=== PATIENT | female | born 1990 | race Hispanic/Latino ===

== ENCOUNTER 2022-06-01 20:27 | Inpatient (IN) | payer SELFPAY ==
[2022-06-01] MEDS ORDERED: ACETAMINOPHEN 500 MG TAB ONE (21:57)
[2022-06-01 22:10] LABS: Absolute Lymphocytes (CBC) 0.2 K/uL (0.7-4.9); Hematocrit 36.1 % (36.0-45.0); MCV 87.8 fL (80-100); RBC Red Blood Cell Count 4.11 M/uL (3.86-4.86)
[2022-06-01 22:17] LABS: Protime INR 1.16
--- NOTE | 2022-06-01 22:25 | RAD REPORT ---
EXAM DESCRIPTION: RAD - Chest Single View - 06/01/2022 10:19 pm CLINICAL HISTORY: FEVER Chest pain. COMPARISON: CHEST SINGLE VIEW dated 06/08/2012; ABDOMEN ACUTE SERIES dated 09/03/2006 FINDINGS: Portable technique limits examination quality. The lungs are grossly clear. The heart is normal in size. No displaced fractures. IMPRESSION: No acute intrathoracic process suspected.
[2022-06-01 22:35] LABS: Albumin 2.6 g/dL (3.4-5.0); Bilirubin Total 0.3 mg/dL (0.2-1.0); Protein, Total 7.2 g/dL (6.4-8.2)
[2022-06-01 22:46] LABS: Potassium 2.8 mmol/L (3.5-5.1)
[2022-06-01] MEDS ORDERED: ONDANSETRON 4 MG/2 ML VIAL ONE (23:58)
[2022-06-01] MEDS ORDERED: MORPHINE 4 MG/ML SYR ONE (23:58)
[2022-06-02 00:09] LABS: Urine Blood Trace-lysed (Negative); Urine Glucose Trace (Negative); Urine Protein 2+ (Negative); Urine Specific Gravity 1.015 (1.005-1.030)
[2022-06-02] MEDS ORDERED: KCL 20 MEQ/100 mL IVPB 100 ML IV ONE (00:45)
[2022-06-02] MEDS ORDERED: CEFTRIAXONE 1000 MG/VIAL ONE (00:45)
[2022-06-02] MEDS ORDERED: NA CHLORIDE 0.9% 500 ML ONE (00:50)
[2022-06-02 00:53] LABS: Urine Specific Gravity/Preg 1.015 (1.005-1.030)
[2022-06-02 01:04] LABS: Urine Bacteria Loaded /HPF (<20); Urine RBC <5 /HPF (None Seen)
--- NOTE | 2022-06-02 01:59 | EDPHYS ---
Physician Documentation [facility] Name: Christine Casey Age: 31 yrs Sex: Female : 1990 Arrival Date: 06/01/2022 Time: 20:34 Bed 3 Private MD: ED Physician Sameer Jacobson HPI: 06/01 21:50 This 31 yrs old Female presents to ER via EMS with complaints of Fever. cp 21:50 The patient reports fever, with an emergency department temperature of 103.5 degrees cp Fahrenheit. 21:50 body aches, chills, malaise, headache times 1 week. cp 21:50 Associated signs and symptoms: Pertinent negatives: abdominal pain, cough, diarrhea, cp vomiting. 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 - Social history:: Smoking status: unknown. ROS: 06/01 21:55 Constitutional: Positive for body aches, fever, Negative for poor PO intake. cp 21:55 Eyes: Negative for injury, pain, redness, and discharge. cp 21:55 ENT: Positive for sore throat. 21:55 Cardiovascular: Negative for chest pain, edema. 21:55 Respiratory: Negative for cough, shortness of breath, wheezing. 21:55 Abdomen/GI: Negative for abdominal pain, vomiting, diarrhea, constipation. 21:55 Back: Positive for pain at rest, pain with movement, of the mid back area. 21:55 Skin: Negative for cellulitis, rash. 21:55 Neuro: Positive for headache, Negative for altered mental status, dizziness, weakness. 21:55 All other systems are negative. Exam: 21:40 ECG was reviewed by the Attending Physician. cp 22:00 Constitutional: The patient appears in no acute distress, alert, awake, cp non-diaphoretic, non-toxic, well developed, well nourished, uncomfortable. 22:00 Head/Face: Normocephalic, atraumatic. cp 22:00 Eyes: Periorbital structures: appear normal, Pupils: equal, round, and reactive to light and accomodation, Extraocular movements: intact throughout, Conjunctiva: normal, no exudate, no injection, Sclera: no appreciated abnormality, Lids and lashes: appear normal, bilaterally. 22:00 ENT: External ear(s): are unremarkable, Ear canal(s): are normal, clear, TM's: dullness, bilaterally, Nose: is normal, Mouth: Lips: moist, Oral mucosa: pink and intact, moist, Posterior pharynx: Airway: no evidence of obstruction, patent, Tonsils: with erythema, no enlargement, no exudate, swelling, is not appreciated, erythema, that is mild, exudate, is not appreciated. 22:00 Neck: ROM/movement: pain, that is mild, with flexion, limited range of motion, is not appreciated, Meningeal signs: are not present, nuchal rigidity, is not appreciated, Lymph nodes: no appreciated lymphadenopathy. 22:00 Chest/axilla: Inspection: normal. 22:00 Cardiovascular: Rate: tachycardic, Rhythm: regular, Edema: is not appreciated, JVD: is not appreciated. 22:00 Respiratory: the patient does not display signs of respiratory distress, Respirations: normal, no use of accessory muscles, no retractions, labored breathing, is not present, Breath sounds: are clear throughout, no decreased breath sounds, no stridor, no wheezing. 22:00 Abdomen/GI: Inspection: abdomen appears normal, Palpation: abdomen is soft and non-tender, in all quadrants. 22:00 Back: pain, that is moderate, of the mid back area, ROM is painful, with all movement, Straight leg raises: of both lower extremities does not illicit pain. 22:00 Skin: cellulitis, is not appreciated, no rash present. 22:00 Neuro: Orientation: to person, place \\T\\ time. Mentation: is normal, Motor: moves all fours, strength is normal, Sensation: is normal. Vital Signs: 21:12 BP 156 / 95; Pulse 153; Resp 20; Temp 103.5(O); Pulse Ox 96% on R/A; Weight 97.52 kg; hb Height 5 ft. 2 in. (157.48 cm); Pain 9/10; 06/02 00:26 BP 115 / 62; Pulse 104; Resp 21; Temp 99.8(O); Pulse Ox 100% on R/A; kd3 01:30 BP 123 / 72; Pulse 99; Resp 17 S; Pulse Ox 100% on R/A; ha1 05:04 Pulse 109; Resp 19; Pulse Ox 98% on R/A; kd3 05:52 Pulse 102; Resp 20; Pulse Ox 99% on R/A; kd3 06/01 21:12 Body Mass Index 39.32 (97.52 kg, 157.48 cm) hb MDM: 06/01 21:19 Patient medically screened. [facility] 06/02 01:45 ED course: Patient meets severe sepsis criteria: A) source of infection is urine, B) cp SIRS criteria is temp of 103.5 and initial HR of 153, C) organ dysfunction criteria with elevated lactate of 2.8. IV fluids of 1 liter bolus times 2, antibiotic Rocephin given. 01:50 Data reviewed: vital signs, nurses notes, lab test result(s), radiologic studies, CT cp scan. 01:50 Test interpretation: by ED physician or midlevel provider: ECG, plain radiologic cp studies. Counseling: I had a detailed discussion with the patient and/or guardian regarding: the historical points, exam findings, and any diagnostic results supporting the discharge/admit diagnosis, lab results, radiology results, the need for further work-up and treatment in the hospital. Physician consultation: Tommy Brice was contacted at 01:20, regarding admission, patient's condition. 06/01 21:45 Order name: Blood Culture Adult (2) 06/01 21:45 Order name: CBC with Diff; Complete Time: 22:22 06/01 22:33 Interpretation: Normal except: JAMISON% 90.0; LYM% 4.0; LYMA 0.2. 06/01 21:45 Order name: CMP; Complete Time: 23:02 06/01 23:02 Interpretation: Normal except: NA 132; K 2.8; GLUC 206; GFR 66; ALK 181; ALB 2.6; GLOB cp 4.6; A/G 0.6. 06/01 21:45 Order name: Lactate; Complete Time: 22:33 06/01 22:33 Interpretation: Abnormal: LAC 2.8. 06/01 21:45 Order name: Protime (+inr); Complete Time: 22:22 06/01 21:45 Order name: Urine Culture 06/01 21:45 Order name: Urine Microscopic Only; Complete Time: 01:15 06/02 01:34 Interpretation: Normal except: UWBC 10-20; UBACT Loaded. cp 06/01 22:23 Order name: COVID-19 SARS RT PCR (Document "Date of Onset" if Symptomatic); Complete cp Time: 01:15 06/01 22:23 Order name: Influenza Screen (a \\T\\ B); Complete Time: 01:15 cp 06/01 22:23 Order name: Strep; Complete Time: 01:15 cp 06/02 00:09 Order name: Urine Dipstick-Ancillary; Complete Time: 00:10 EDMS 06/02 01:34 Interpretation: Normal except: UBLD Trace-lysed; UPROT 2+; UNIT Positive; UESTR 1+. cp 06/02 00:14 Order name: Glucose, Ancillary Testing; Complete Time: 00:20 EDMS 06/02 00:14 Order name: Urine --Ancillary (enter results); Complete Time: 01:15 wm 06/02 00:47 Order name: Throat Culture EDMS 06/01 21:45 Order name: Chest Single View XRAY; Complete Time: 22:33 cp 06/02 00:14 Order name: CT Abd/Pelvis - IV Contrast Only cp 06/02 02:33 Order name: Lactate Sepsis 2 HR Follow-up; Complete Time: 21:01 EDMS 06/02 06:23 Order name: CBC with Automated Diff; Complete Time: 21:01 EDMS 06/02 06:48 Order name: Comprehensive Metabolic Panel; Complete Time: 21:01 EDMS 06/02 06:48 Order name: Magnesium; Complete Time: 21:01 EDMS 06/02 07:17 Order name: Hemoglobin A1c; Complete Time: 21:01 EDMS 06/02 10:45 Order name: Gram Stain--Anaerobic Bottle EDMS 06/01 21:45 Order name: Accucheck; Complete Time: 00:18 cp 06/01 21:45 Order name: Cardiac monitoring; Complete Time: 23:41 cp 06/01 21:45 Order name: EKG - Nurse/Tech; Complete Time: 21:45 cp 06/01 21:45 Order name: IV Saline Lock - Large Bore; Complete Time: 21:45 cp 06/01 21:45 Order name: Labs collected and sent; Complete Time: 21:56 cp 06/01 21:45 Order name: O2 Per Protocol; Complete Time: 21:56 cp 06/01 21:45 Order name: O2 Sat Monitoring; Complete Time: 21:56 cp 06/01 21:45 Order name: Urine Dipstick-Ancillary (obtain specimen); Complete Time: 00:18 cp 06/01 21:45 Order name: Urine Test (obtain specimen); Complete Time: 00:18 cp EC/01 21:40 Rate is 122 beats/min. Rhythm is regular. TX interval is normal. QRS interval is cp normal. QT interval is normal. Interpreted by me. Reviewed by me. Administered Medications: 21:56 Drug: Acetaminophen 1000 mg Route: PO; kd3 06/02 05:03 Follow up: Response: Temperature is decreased kd3 06/01 23:55 Drug: morphine 4 mg Route: IVP; Infused Over: 4 mins; Site: right antecubital; kd3 06/02 05:03 Follow up: Response: No adverse reaction kd3 06/01 23:55 Drug: Zofran (Ondansetron) 4 mg Route: IVP; Site: right antecubital; kd3 06/02 05:03 Follow up: Response: No adverse reaction kd3 00:50 Drug: Rocephin - (cefTRIAXone) 1 grams Route: IVPB; Infused Over: 30 mins; Site: right 3 antecubital; 03:13 Follow up: IV Status: Completed infusion kd3 00:50 Drug: Potassium Chloride 20 mEq Route: IV; Rate: calculated rate; Site: right 3 antecubital; 03:13 Follow up: IV Status: Completed infusion kd3 05:03 Follow up: Response: No adverse reaction kd3 03:13 Drug: NS 0.9% 1000 ml Route: IV; Rate: 1 bolus; Site: right antecubital; kd3 05:02 Follow up: Rate change 1000 ml; IV Status: Completed infusion kd3 03:13 Drug: Potassium Effervescent Tablet 50 mEq Route: PO; kd3 05:06 Follow up: Response: No adverse reaction kd3 03:14 Drug: Zofran (Ondansetron) 4 mg Route: IVP; Site: right antecubital; kd3 05:02 Follow up: Response: No adverse reaction; Pain is decreased kd3 03:14 Drug: morphine 4 mg Route: IVP; Infused Over: 4 mins; Site: right antecubital; kd3 05:02 Follow up: Response: No adverse reaction; Pain is decreased kd3 05:36 Drug: NS 0.9% 1000 ml Route: IV; Rate: 100 ml/hr; Site: right antecubital; kd3 05:36 Follow up: Rate change 1000 ml; IV Status: Completed infusion kd3 Disposition Summary: 06/02/22 01:58 Hospitalization Ordered Hospitalization Status: Inpatient Admission cp Provider: Rusty Munguia cp Condition: Stable cp Problem: new cp Symptoms: have improved cp Bed/Room Type: Standard cp Location: Intensive Care Unit(06/02/22 13:28) ja1 Room Assignment: 5-(06/02/22 13:39) ja1 Diagnosis - Pyelonephritis acute cp - Sepsis, unspecified organism cp Forms: - Medication Reconciliation Form cp - SBAR form cp Signatures: Dispatcher [employer] EDMS Sameer Jacobson MD MD cha Attema, Lee, OYSTER CULTIVATOR-C OYSTER CULTIVATOR-Cla1 Sameer Hicks PA PA cp Rosalinda Stubbs, RN CATIA Marcus Mcelroy RN RN ja1 Graciela Chacon RN RN kd3 Corrections: (The following items were deleted from the chart) 02:27 01:58 Telemetry/MedSurg (Inpatient) cp cg 02:27 01:58 cp cg 04:11 06/01 21:50 body aches. cp cp 06/02 04:11 06/01 21:50 Onset: The symptoms/episode began/occurred 1 week(s) ago, cp cp 06/02 13:28 02:27 [facility] ER HOLD cg ja1 13:28 02:27 ERHOLD- cg ja1 13:39 13:28 3- ja1 ja1
--- NOTE | 2022-06-02 01:59 | ER ---
Nurse's Notes [facility] Name: Christine Casey Age: 31 yrs Sex: Female : 1990 Arrival Date: 06/01/2022 Time: 20:34 Bed 3 Private MD: Diagnosis: Pyelonephritis acute;Sepsis, unspecified organism Presentation: 06/01 21:12 Chief complaint: Body aches, nausea, headache, chills, subjective fever, and malaise x hb 1 week. Coronavirus screen: Client presents with at least one sign or symptom that may indicate coronavirus-19. Standard/surgical mask placed on the client. Provider contacted for isolation considerations. Ebola Screen: No symptoms or risks identified at this time. Onset of symptoms was May 25, 2022. 21:12 Method Of Arrival: EMS: [facility] hb 21:12 Acuity: MICHELLE 2 hb 06/02 04:08 Initial Sepsis Screen: Does the patient meet any 2 criteria? No. Patient's initial kd3 sepsis screen is negative. Does the patient have a suspected source of infection? No. Patient's initial sepsis screen is negative. Risk Assessment: Do you want to hurt yourself or someone else? Patient reports no desire to harm self or others. Triage Assessment: 04:07 General: Appears uncomfortable, Behavior is calm, cooperative. Pain: Complains of pain kd3 in mid back area. 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 - Social history:: Smoking status: unknown. Screenin:27 Abuse screen: Denies threats or abuse. Denies injuries from another. Nutritional kd3 screening: No deficits noted. Tuberculosis screening: No symptoms or risk factors identified. Fall Risk None identified. Assessment: 06/01 22:30 General: Appears in no apparent distress. Behavior is calm, cooperative. kd3 23:30 Neuro: Level of Consciousness is awake, alert, obeys commands, Oriented to person, kd3 place, time, situation. Respiratory: Airway is patent Trachea midline Respiratory effort is even, unlabored, Respiratory pattern is regular, symmetrical. 23:30 Cardiovascular: Patient's skin is warm and dry. kd3 06/02 00:26 Reassessment: No changes from previously documented assessment. Patient and/or family kd3 updated on plan of care and expected duration. Pain level reassessed. Patient is alert, oriented x 3, equal unlabored respirations, skin warm/dry/pink. General:. 03:25 Reassessment: No changes from previously documented assessment. Patient and/or family kd3 updated on plan of care and expected duration. Pain level reassessed. Patient is alert, oriented x 3, equal unlabored respirations, skin warm/dry/pink. 04:08 General: Appears uncomfortable, Behavior is calm, cooperative. kd3 05:01 Pain: Complains of pain in mid back area. kd3 Vital Signs: 06/01 21:12 BP 156 / 95; Pulse 153; Resp 20; Temp 103.5(O); Pulse Ox 96% on R/A; Weight 97.52 kg; hb Height 5 ft. 2 in. (157.48 cm); Pain /; 06/02 00:26 BP 115 / 62; Pulse 104; Resp 21; Temp 99.8(O); Pulse Ox 100% on R/A; kd3 01:30 BP 123 / 72; Pulse 99; Resp 17 S; Pulse Ox 100% on R/A; ha1 05:04 Pulse 109; Resp 19; Pulse Ox 98% on R/A; kd3 05:52 Pulse 102; Resp 20; Pulse Ox 99% on R/A; kd3 06/01 21:12 Body Mass Index 39.32 (97.52 kg, 157.48 cm) hb ED Course: 06/01 20:34 Patient arrived in ED. ja2 21:14 Triage completed. hb 21:14 Arm band placed on. hb 21:17 Sameer Hicks PA is PHCP. cp 21:17 Sameer Jacobson MD is Attending Physician. cp 21:44 Graciela Chacon RN is Primary Nurse. kd3 22:21 Chest Single View XRAY In Process Unspecified. EDMS 06/02 00:18 COVID-19 SARS RT PCR (Document "Date of Onset" if Symptomatic) Sent. kd3 00:18 Influenza Screen (a \\T\\ B) Sent. kd3 00:18 Strep Sent. kd3 01:22 CT Abd/Pelvis - IV Contrast Only In Process Unspecified. EDMS 01:57 Ezra, Rusty, MD is Hospitalizing Provider. cp 04:08 No provider procedures requiring assistance completed. Inserted saline lock: 20 gauge kd3 in right antecubital area, using aseptic technique. Blood collected. 05:53 Patient admitted, IV remains in place. kd3 05:54 Patient has correct armband on for positive identification. kd3 Administered Medications: 06/01 21:56 Drug: Acetaminophen 1000 mg Route: PO; kd3 06/02 05:03 Follow up: Response: Temperature is decreased kd3 06/01 23:55 Drug: morphine 4 mg Route: IVP; Infused Over: 4 mins; Site: right antecubital; kd3 06/02 05:03 Follow up: Response: No adverse reaction kd3 06/01 23:55 Drug: Zofran (Ondansetron) 4 mg Route: IVP; Site: right antecubital; kd3 06/02 05:03 Follow up: Response: No adverse reaction kd3 00:50 Drug: Rocephin - (cefTRIAXone) 1 grams Route: IVPB; Infused Over: 30 mins; Site: right kd3 antecubital; 03:13 Follow up: IV Status: Completed infusion kd3 00:50 Drug: Potassium Chloride 20 mEq Route: IV; Rate: calculated rate; Site: right kd3 antecubital; 03:13 Follow up: IV Status: Completed infusion kd3 05:03 Follow up: Response: No adverse reaction kd3 03:13 Drug: NS 0.9% 1000 ml Route: IV; Rate: 1 bolus; Site: right antecubital; kd3 05:02 Follow up: Rate change 1000 ml; IV Status: Completed infusion kd3 03:13 Drug: Potassium Effervescent Tablet 50 mEq Route: PO; kd3 05:06 Follow up: Response: No adverse reaction kd3 03:14 Drug: Zofran (Ondansetron) 4 mg Route: IVP; Site: right antecubital; kd3 05:02 Follow up: Response: No adverse reaction; Pain is decreased kd3 03:14 Drug: morphine 4 mg Route: IVP; Infused Over: 4 mins; Site: right antecubital; kd3 05:02 Follow up: Response: No adverse reaction; Pain is decreased kd3 05:36 Drug: NS 0.9% 1000 ml Route: IV; Rate: 100 ml/hr; Site: right antecubital; kd3 05:36 Follow up: Rate change 1000 ml; IV Status: Completed infusion kd3 Medication: 04:08 VIS not applicable for this client. kd3 Outcome: 01:58 Decision to Hospitalize by Provider. cp 04:08 Condition: stable kd3 05:53 Admitted to ER Hold. Please see [facility] for further documentation. kd3 05:53 Discharge instructions given to patient, Instructed on the need for admit, Demonstrated understanding of instructions, follow-up care. 14:21 Patient left the ED. ll1 Signatures: Dispatcher [employer] EDMS Sameer Hicks PA PA cp Malena Ruiz RN RN Lisha Krishnamurthy RN RN ll1 Lucretia Mooney Kyli, RN RN kd3 Mare Lynch RN RN ha1
--- NOTE | 2022-06-02 02:23 | P.HP ---
Certification for Inpatient Patient admitted to: Inpatient With expected LOS: >2 Midnights Patient will require the following post-hospital care: None Practitioner: I am a practitioner with admitting privileges, knowledge of patient current condition, hospital course, and medical plan of care. Services: Services provided to patient in accordance with Admission requirements found in Title 42 Section 412.3 of the Code of Federal Regulations <Tommy Brice Luis Vazquez - Last Filed: 06/02/22 02:17> Patient History Date of Service: 06/02/22 Reason for admission: Sepsis, pyelonephritis History of Present Illness: 31-year-old otherwise healthy female presents emergency department for 4 days of chills, malaise, right-sided back pain. She does report some urinary frequency denies history of UTIs. Upon arrival to the emergency department she met criteria for sepsis with heart rate greater than 90 fever, respiratory rate greater than 20 with suspected source of infectionUTI. Her labs are significant for hypokalemia with potassium 2.8 lactic acidosis 2.8 initially white blood cell count 5.5 urine nitrate positive 1+ leuk esterase loaded bacteria CT with IV contrast shows enlargement of the right kidney with heterogenous enhancement pattern and mild perinephric stranding, wedge-shaped opacity in the superior lobe, mild urothelial thickening findings highly suggestive of right-sided pyelonephritis. Associated early renal abscess cannot be entirely excluded. Patient given antibioticsRocephin repeat lactate currently pending patient meets criteria for severe sepsis. Will admit for further evaluation and management of right-sided pyelonephritis, severe sepsis. - Past Medical/Surgical History Diabetic: No -: none -: Appy -: Arianna Psychosocial/ Personal History: Pt lives at home with family. - Family History Mother -: Diabetes Father -: Heart disease - Social History Smoking Status: Current some day smoker Alcohol use: Yes CD- Drugs: No Place of Residence: Home <Tommy Brice - Last Filed: 06/02/22 02:17> Date of Service: 06/02/22 <Rusty Munguia - Last Filed: 06/02/22 19:31> Allergies No Known Allergies Allergy (Verified 06/02/22 15:01) Home Medications: NK [No Home Meds] 06/02/22 Review of Systems 10-point ROS is otherwise unremarkable General: Fever, Chills, Weakness, Malaise Genitourinary: Frequency <Tommy Brice - Last Filed: 06/02/22 02:17> Physical Examination - Physical Exam General: Alert, In no apparent distress, Oriented x3 HEENT: Atraumatic, PERRLA, Mucous membr. moist/pink, EOMI, Sclerae nonicteric Neck: Supple, 2+ carotid pulse no bruit, No LAD, Without JVD or thyroid abnormality Respiratory: Clear to auscultation bilaterally, Normal air movement Cardiovascular: Regular rate/rhythm, Normal S1 S2 Capillary refill: <2 Seconds Gastrointestinal: Normal bowel sounds, No tenderness Musculoskeletal: Other (Right CVA tenderness +) Integumentary: No rashes Neurological: Normal speech, Normal strength at 5/5 x4 extr, Normal tone, Normal affect Lymphatics: No axilla or inguinal lymphadenopathy - Studies Laboratory Data (last 24 hrs) 06/01/22 21:29: PT 12.8 H, INR 1.16 06/01/22 21:29: Sodium 132 L, Potassium 2.8 L*, BUN 12, Creatinine 1.13, Glucose 206 H, Total Bilirubin 0.3, AST 31, ALT 25, Alkaline Phosphatase 181 H 06/01/22 21:29: WBC 5.50, Hgb 12.3, Hct 36.1, Plt Count 171 Microbiology Data (last 24 hrs): 06/01/22 23:59 Throat Group A Streptococcus Rapid Screen - Final 06/01/22 23:59 Nasopharnyx Influenza Type A Antigen Screen - Final 06/01/22 23:59 Nasopharnyx Influenza Type B Antigen Screen - Final <Tommy Brice - Last Filed: 06/02/22 02:17> - Studies Laboratory Data (last 24 hrs) 06/01/22 21:29: PT 12.8 H, INR 1.16 06/01/22 21:29: Sodium 132 L, Potassium 2.8 L*, BUN 12, Creatinine 1.13, Glucose 206 H, Total Bilirubin 0.3, AST 31, ALT 25, Alkaline Phosphatase 181 H 06/01/22 21:29: WBC 5.50, Hgb 12.3, Hct 36.1, Plt Count 171 Microbiology Data (last 24 hrs): 06/01/22 21:43 Blood - Blood Gram Stain - Final 06/01/22 23:59 Throat Group A Streptococcus Rapid Screen - Final 06/01/22 23:59 Nasopharnyx Influenza Type A Antigen Screen - Final 06/01/22 23:59 Nasopharnyx Influenza Type B Antigen Screen - Final <Rusty Munguia - Last Filed: 06/02/22 19:31> Assessment and Plan - Plan Assessment: Severe sepsis secondary to right-sided pyelonephritis Hypokalemia Hyperglycemia Plan: Severe sepsis secondary to right-sided pyelonephritis: SIRS criteria for heart rate greater than 90, temperature greater than 100.4, respiratory rate greater than 20 and source of infection right-sided pyelonephritis. Lactic acid 2.8 repeat level pending. Patient given antibioticsRocephin blood and urine cultures obtained. CT shows right-sided pyelonephritis cannot entirely rule out early renal abscess, patient would benefit with renal ultrasound in the next 48 hours or so to further evaluate. Hypokalemia: Replaced in ER, protocol in place, will check mag as well in the morning. Hyperglycemia: Not a known diabetic, A1c in the morning. If sugars remain elevated will place sliding scale. DVT PPX: Lovenox Code status: Full Discharge Plan: Home Plan to discharge in: 48 Hours - Advance Directives Does patient have a Living Will: No Does patient have a Durable POA for Healthcare: No - Code Status/Comfort Care Code Status Assessed: Yes (Full code) Critical Care: No Time Spent Managing Pts Care (In Minutes): 55 <Tommy Brice - Last Filed: 06/02/22 02:17> Physician Review: Patient Assessed, Agree with Above Assessment and Plan <Rusty Munguia - Last Filed: 06/02/22 19:31>
[2022-06-02] MEDS ORDERED: MORPHINE 4 MG/ML SYR ONE (03:13)
[2022-06-02] MEDS ORDERED: NA CHLORIDE 0.9% 2,000 ML ONE (03:13)
[2022-06-02] MEDS ORDERED: ONDANSETRON 4 MG/2 ML VIAL ONE ×2 (03:13→08:54)
[2022-06-02] MEDS ORDERED: POTASSIUM 25 MEQ EFFERV TAB ONE (03:14)
[2022-06-02] MEDS: Ringers Lactate 1,000 ML IV SCH ×3 (05:27→17:52)
[2022-06-02] MEDS ORDERED: Ringers Lactate 1,000 ML IV ONE (06:07)
[2022-06-02 06:20] LABS: Absolute Lymphocytes (CBC) 0.8 K/uL (0.7-4.9); Hematocrit 31.3 % (36.0-45.0); Lymphocytes % 11.7 % (15.3-44.8); MCV 88.3 fL (80-100); MPV 9.6 fL (7.6-11.3); RBC Red Blood Cell Count 3.55 M/uL (3.86-4.86)
[2022-06-02 06:47] LABS: Bilirubin Total 0.3 mg/dL (0.2-1.0); Magnesium 2.1 mg/dL (1.8-2.4); Protein, Total 6.2 g/dL (6.4-8.2)
[2022-06-02] MEDS ORDERED: ENOXAPARIN 40 MG/0.4 ML SQ ONE (08:17)
[2022-06-02] MEDS ORDERED: MORPHINE 2 MG/ML SYR IV ONE (08:45)
[2022-06-02] MEDS ORDERED: MORPHINE 2 MG/ML SYR ONE ×2 (08:54→13:02)
[2022-06-02] MEDS: ONDANSETRON 4 MG/2 ML VIAL IV PRN (08:55)
[2022-06-02] MEDS: ENOXAPARIN 40 MG/0.4 ML SQ SCH (08:55)
[2022-06-02] MEDS: MORPHINE 2 MG/ML SYR IV PRN ×3 (13:00→23:10)
--- NOTE | 2022-06-02 13:14 | RAD REPORT ---
EXAM DESCRIPTION: CT - Abdomen Pelvis W Contrast - 06/02/2022 4:15 am CLINICAL HISTORY: The patient is 31 years old and is Female; back pain TECHNIQUE: Axial computed tomography images of the abdomen and pelvis with intravenous contrast. S agittal and coronal reformatted images were created and reviewed. This CT exam was performed using one or more of the following dose reduction techniques: automated exposure control, adjustment of t he mA and/or kV according to patient size, and/or use of iterative reconstruction technique. DLP: 2088 mGy*cm COMPARISON: CT abdomen and pelvis dated 06/08/2012. FINDINGS: LUNG BASES: Mild bibasilar atelectasis. No focal consolidation or pleural effusion. HEART: Visualized heart is normal. ABDOMEN: LIVER: Unremarkable. No mass. GALLBLADDER AND BILE DUCTS: Prior cholecystectomy. No ductal dilation. PANCREAS: Unremarkable. No mass. No ductal dilation. SPLEEN: Unremarkable. No splenomegaly. ADRENALS: Unremarkable. No mass. KIDNEYS AND URETERS: Enlargement of the right kidney with heterogenous enhancement pattern and mild perinephric stranding. Wedge-shaped opacity in the superior pole. Mild urothelial thickening. STOMACH AND BOWEL: Unremarkable. No obstruction. No mucosal thickening. PELVIS: APPENDIX: Prior appendectomy. BLADDER: Unremarkable. No mass. REPRODUCTIVE: Tampon in the vaginal canal. ABDOMEN and PELVIS: INTRAPERITONEAL SPACE: Unremarkable. No free air. No significant fluid collection. BONES/JOINTS: No acute fracture. No dislocation. SOFT TISSUES: Unremarkable. VASCULATURE: Unremarkable. No abdominal aortic aneurysm. LYMPH NODES: Unremarkable. No enlarged lymph nodes. IMPRESSION: Enlargement of the right kidney with heterogenous enhancement pattern and mild perinephr ic stranding. Wedge-shaped opacity in the superior pole. Mild urothelial thickening. Findings highl y suggestive of right-sided pyonephritis. Associated early renal abscess cannot be entirely excluded. Correlate with urinalysis. Electronically signed by: Wicho Croft DO 06/02/2022 1:48 AM CDT Due to temporary technical issues with the PACS/Fluency reporting system, reports are being signed by the in house radiologists without review as a courtesy to insure prompt reporting. The interpreting radiologist is fully responsible for the content of the report.
--- NOTE | 2022-06-02 13:58 | EKG ---
Test Date: 2022-06-01 Test Time: 21:31:15 [employer] Researcher: PB MEASUREMENT RESULTS: Intervals: Rate: 122 AR: 130 QRSD: 90 QT: 320 QTc: 456 [place]: P: 37 AR: 130 QRS: 31 T: 37 INTERPRETIVE STATEMENTS: Sinus tachycardia Otherwise normal ECG Compared to ECG 01/22/2012 14:00:22 Sinus rhythm no longer present Sinus arrhythmia no longer present Electronically Signed On 06-02-22 13:57:34 CDT by Shaun Lee
[2022-06-02] MEDS: ACETAMINOPHEN 500 MG TAB PO PRN ×2 (14:43→23:38)
[2022-06-02] MEDS: CEFTRIAXONE 1,000 MG in NA CHLORIDE 0.9% 50 ML IVPB SCH (19:25)
[2022-06-03] MEDS: ZOLPIDEM TARTRATE 5 MG TABLET PO PRN ×2 (00:43→23:01)
[2022-06-03] MEDS: Ringers Lactate 1,000 ML IV SCH ×4 (01:10→21:27)
[2022-06-03] MEDS: MORPHINE 2 MG/ML SYR IV PRN ×4 (04:51→21:06)
[2022-06-03 05:18] LABS: Absolute Lymphocytes (CBC) 1.2 K/uL (0.7-4.9); Hematocrit 30.4 % (36.0-45.0); Lymphocytes % 23.8 % (15.3-44.8); MCV 88.7 fL (80-100); MPV 9.9 fL (7.6-11.3); RBC Red Blood Cell Count 3.43 M/uL (3.86-4.86)
[2022-06-03 05:42] LABS: Albumin 1.9 g/dL (3.4-5.0); Bilirubin Total 0.2 mg/dL (0.2-1.0); Magnesium 2.1 mg/dL (1.8-2.4); Protein, Total 6.3 g/dL (6.4-8.2)
[2022-06-03] MEDS ORDERED: POTASSIUM 25 MEQ EFFERV TAB PO ONE (07:00)
[2022-06-03] MEDS: ENOXAPARIN 40 MG/0.4 ML SQ SCH (09:34)
--- NOTE | 2022-06-03 16:46 | P.PN ---
Subjective Date of Service: 06/03/22 Chief Complaint: Sepsis, pyelonephritis No acute events overnight. Appears to be improving clinically. She reports that her flank pain has significantly improved. Review of Systems 10-point ROS is otherwise unremarkable Genitourinary: Dysuria Musculoskeletal: Back Pain (right flank) Physical Examination - Vital Signs Temperature: 98.6 F Blood Pressure: 133/86 Pulse: 97 Respirations: 18 Pulse Ox (%): 100 - Physical Exam General: Alert, In no apparent distress, Oriented x3 HEENT: Atraumatic, PERRLA, Mucous membr. moist/pink, EOMI, Sclerae nonicteric Neck: Supple, JVD not distended Respiratory: Clear to auscultation bilaterally, Normal air movement Cardiovascular: No edema, Regular rate/rhythm, Normal S1 S2, No gallops, No rubs, No murmurs Gastrointestinal: Normal bowel sounds, Soft and benign, Non-distended, No tenderness, No rebound, No guarding Musculoskeletal: Other (mild right CVA tenderness) Integumentary: No rashes Neurological: Normal speech, Cranial nerves 3-12 intact, Normal affect - Studies Microbiology Data (last 24 hrs): 06/01/22 23:59 Throat Culture & Sensitivity - Final NORMAL UPPER RESPIRATORY KATTY GROWN. 06/01/22 21:43 Blood - Blood Gram Stain - Final Assessment And Plan - Plan # Severe Sepsis likely secondary to Right-Sided Pyelonephritis and Gram-Negative Bacteremia with question of Early Renal Abscess She meets SIRS criteria based on temperature > 100.9 F, HR > 90 bpm, RR > 20 breaths/min, and the suspected source is urinary. Severe sepsis is suspected due to concern for tissue hypoperfusion/organ dysfunction based on lactic acid > 2 mmol/L. - Sepsis order set was initiated - Lactate trend was 2.8 -> 1.4 - Blood cultures drawn before antibiotics were given - blood cultures positive for gram-negative bacteremia - Broad spectrum antibiotics started: Ceftriaxone - In regards to fluids: - 30 mL/kg of IV fluids was not administered given SBP >90, MAP >65, lactic acid < 4 - CT abdomen/pelvis = "enlargement of the right kidney with heterogenous enhancement pattern and mild perinephric stranding. Wedge-shaped opacity in the superior pole. Mild urothelial thickening. Findings highly suggestive of right- sided pyonephritis. Associated early renal abscess cannot be entirely excluded. Correlate with urinalysis." - Plan to obtain renal US tomorrow to re-evaluate for abscess Rusty Munguia M.D.
[2022-06-03] MEDS ORDERED: ALPRAZOLAM 0.25 MG TABLET PO PRN (17:02)
[2022-06-03] MEDS: NICOTINE 7 MG/PAT TD SCH ×2 (17:03→17:45)
[2022-06-03] MEDS: CEFTRIAXONE 1,000 MG in NA CHLORIDE 0.9% 50 ML IVPB SCH (21:05)
[2022-06-03] MEDS ORDERED: POTASSIUM CL SA 10 MEQ TAB PO ONE (21:15)
[2022-06-04] MEDS: Ringers Lactate 1,000 ML IV SCH ×4 (01:11→16:16)
[2022-06-04] MEDS: MORPHINE 2 MG/ML SYR IV PRN ×4 (04:53→20:08)
[2022-06-04 05:36] LABS: Absolute Lymphocytes (CBC) 1.3 K/uL (0.7-4.9); Hematocrit 26.9 % (36.0-45.0); Lymphocytes % 29.4 % (15.3-44.8); MCV 89.6 fL (80-100); MPV 9.6 fL (7.6-11.3)
[2022-06-04 05:52] VITALS: BMI 34.4
[2022-06-04 05:56] LABS: Albumin 1.7 g/dL (3.4-5.0); Bilirubin Total 0.2 mg/dL (0.2-1.0); Magnesium 1.8 mg/dL (1.8-2.4); Potassium 3.4 mmol/L (3.5-5.1)
[2022-06-04] MEDS ORDERED: POTASSIUM CL SA 10 MEQ TAB PO ONE (05:58)
[2022-06-04] MEDS ORDERED: MAGNESIUM SULFATE 1 gm IVPB 1 GM/100 ML BAG IV ONE (05:58)
[2022-06-04] MEDS: ENOXAPARIN 40 MG/0.4 ML SQ SCH (08:25)
[2022-06-04] MEDS: NICOTINE 7 MG/PAT TD SCH (08:25)
[2022-06-04] MEDS: ACETAMINOPHEN 500 MG TAB PO PRN (08:28)
--- NOTE | 2022-06-04 12:13 | RAD REPORT ---
EXAM DESCRIPTION: US - Renal Ultrasound-Complete - 06/04/2022 10:28 am CLINICAL HISTORY: Abdominal pain COMPARISON: CT abdomen June 02 1022 FINDINGS: The right kidney measures 13 centimeters cm with a heterogeneous echotexture. An abscess i s not visualized. No hydronephrosis. The left kidney measures 12 cm with a normal echotexture. Hydronephrosis is not seen. No gross abnormality of bladder IMPRESSION: These findings likely indicate right pyelonephritis. No abscess visualized
[2022-06-04] MEDS ORDERED: POTASSIUM 25 MEQ EFFERV TAB PO ONE (15:00)
--- NOTE | 2022-06-04 18:31 | P.PN ---
Subjective Date of Service: 06/04/22 Chief Complaint: Sepsis, pyelonephritis No acute events overnight. She reports that her flank pain has significantly improved, grading it a 2-3/10 in severity. Denies any dysuria, frequency, or urgency. Review of Systems 10-point ROS is otherwise unremarkable Musculoskeletal: Back Pain (right flank ) Physical Examination - Vital Signs Temperature: 97.1 F Blood Pressure: 131/81 Pulse: 78 Respirations: 14 Pulse Ox (%): 100 - Studies Microbiology Data (last 24 hrs): 06/01/22 23:58 Clean Catch Urine [place] Count - Final >100,000 CFU/ML. 06/01/22 23:58 Clean Catch Urine - Final MIXED KATTY. 06/01/22 21:43 Blood - Blood Gram Stain - Final Assessment And Plan - Plan - Physical Exam General: Alert, In no apparent distress, Oriented x3 HEENT: Atraumatic, PERRLA, Mucous membr. moist/pink, EOMI, Sclerae nonicteric Neck: Supple, JVD not distended Respiratory: Clear to auscultation bilaterally, Normal air movement Cardiovascular: No edema, Regular rate/rhythm, Normal S1 S2, No gallops, No rubs, No murmurs Gastrointestinal: Normal bowel sounds, Soft and benign, Non-distended, No tenderness, No rebound, No guarding Musculoskeletal: Other (mild right CVA tenderness) Integumentary: No rashes Neurological: Normal speech, Cranial nerves 3-12 intact, Normal affect # Severe Sepsis likely secondary to Right-Sided Pyelonephritis and Multi-Drug Resistant Escherechia Coli Bacteremia with question of Early Renal Abscess She meets SIRS criteria based on temperature > 100.9 F, HR > 90 bpm, RR > 20 breaths/min, and the suspected source is urinary. Severe sepsis is suspected due to concern for tissue hypoperfusion/organ dysfunction based on lactic acid > 2 mmol/L. - Sepsis order set was initiated - Lactate trend was 2.8 -> 1.4 - Blood cultures drawn before antibiotics were given - blood cultures positive for MDR E. Coli (resistant: ampicillin, bactrim, cefazolin, Unasyn) bacteremia - Broad spectrum antibiotics started: Ceftriaxone - Consult Infectious Diseases for duration of antibiotic therapy - In regards to fluids: - 30 mL/kg of IV fluids was not administered given SBP >90, MAP >65, lactic acid < 4 - CT abdomen/pelvis = "enlargement of the right kidney with heterogenous enhancement pattern and mild perinephric stranding. Wedge-shaped opacity in the superior pole. Mild urothelial thickening. Findings highly suggestive of right- sided pyonephritis. Associated early renal abscess cannot be entirely excluded. Correlate with urinalysis." - Renal US = "these findings likely indicate right pyelonephritis. No abscess visualized" Rusty Munguia M.D.
[2022-06-04] MEDS: CEFTRIAXONE 1,000 MG in NA CHLORIDE 0.9% 50 ML IVPB SCH (20:04)
[2022-06-04] MEDS: ZOLPIDEM TARTRATE 5 MG TABLET PO PRN (22:00)
[2022-06-05 01:28] VITALS: O2SAT 100
[2022-06-05 04:32] LABS: Potassium 3.5 mmol/L (3.5-5.1)
[2022-06-05] MEDS: HYDROCODONE/APAP 7.5/325 MG TAB PO PRN ×3 (06:16→20:23)
[2022-06-05] MEDS: Ringers Lactate 1,000 ML IV SCH ×4 (06:18→20:27)
[2022-06-05] MEDS ORDERED: POTASSIUM 25 MEQ EFFERV TAB PO ONE (08:00)
[2022-06-05] MEDS: NICOTINE 7 MG/PAT TD SCH (09:00)
[2022-06-05] MEDS: ENOXAPARIN 40 MG/0.4 ML SQ SCH (09:31)
[2022-06-05] MEDS: MORPHINE 2 MG/ML SYR IV PRN (09:32)
[2022-06-05 09:57] LABS: Magnesium 1.8 mg/dL (1.8-2.4)
--- NOTE | 2022-06-05 11:12 | P.PN ---
Subjective Date of Service: 06/05/22 Chief Complaint: Sepsis, pyelonephritis Subjective: No new changes, Improving c/o headache today. Physical Examination - Vital Signs Temperature: 97.7 F Blood Pressure: 125/60 Pulse: 65 Respirations: 16 Pulse Ox (%): 94 - Physical Exam General: Alert, Oriented x3 HEENT: Atraumatic, Normocephalic Neck: Supple Respiratory: Normal air movement Cardiovascular: Regular rate/rhythm, Normal S1 S2 Gastrointestinal: Non-distended Musculoskeletal: No swelling Neurological: Normal speech, Normal strength at 5/5 x4 extr - Studies Microbiology Data (last 24 hrs): 06/01/22 23:58 Clean Catch Urine [place] Count - Final >100,000 CFU/ML. 06/01/22 23:58 Clean Catch Urine - Final MIXED KATTY. 06/01/22 21:43 Blood - Blood Gram Stain - Final Assessment And Plan - Plan # Severe Sepsis likely secondary to Right-Sided Pyelonephritis and Multi-Drug Resistant Escherechia Coli Bacteremia with question of Early Renal Abscess Significant improvement in symptomatology and neutrophil differential. E. coli bacteremia noted and antibiogram noted. Sensitive antibiotic of Rocephin presently. ID following for antibiotic duration management and other management recommendation. Follow closely. Physician Review: Patient Assessed, Agree with Above Assessment and Plan
[2022-06-05] MEDS: ONDANSETRON 4 MG/2 ML VIAL IV PRN (13:20)
[2022-06-05] MEDS ORDERED: ALPRAZOLAM 0.5 MG TABLET PO ONE (14:01)
[2022-06-05] MEDS ORDERED: IBUPROFEN 400 MG TAB PO ONE (14:02)
--- NOTE | 2022-06-05 15:15 | CON ---
History Of Present Illness: This is a 31-year-old female. I was consulted to evaluate the patient for bacteremia secondary to E coli. The patient coming in with urinary tract infection and sepsis, . Feels much better today, but still not able to eat well. Past Medical History: Cholecystitis, cholecystectomy. Family History: Diabetes mellitus and heart disease. Social History: Nonsmoker, nondrinker. Medications: Rocephin. See MAR for other medications. Allergies: NO KNOWN DRUG ALLERGIES. Review of Systems: A 10-point review was performed. Physical Examination: General: This is a 31-year-old female, lying in bed, not in any acute cardiopulmonary distress. Vital Signs: Temperature 97.7, pulse 65, respirations 16, blood pressure 125/60. HEENT: Unremarkable. Neck: Supple. Lungs: Clear to auscultation. Heart: S1, S2. Regular. Abdomen: Soft. Bowel sounds present. Extremity: No edema. Laboratory Data: Shows WBC 4.5, hemoglobin 9, platelets 270. Sodium 139, potassium 3.5, chloride 100, bicarb 31, BUN 4, creatinine 0.4, glucose 122. Albumin level is . A chest x-ray done on 06/01 shows no acute intrathoracic process. Abdominal CT and pelvis done on 06/02 shows the patient has enlargement of the right kidney with continuous enhancement pattern and mild perinephric stranding, wedge shaped, opacity in the superior pole, thickening finding highly suggestive of right-sided pyelonephritis associated with early renal abscess cannot be entirely excluded correlated with urinalysis. Urine shows WBC of 10-20 and urine cultures are growing mixed nathaniel of more than 100,000. Assessment And Plan: Right-sided pyelonephritis with questionable abscess. Continue IV antibiotic. Consider switching to oral ciprofloxacin. If the patient continues to improve, total course could be 14 days more on discharge. We will follow the patient as needed. Bacteremia secondary to Escherichia coli. Repeat blood cultures. We will follow the patient closely. Thank you Dr. Munguia and for consult. SHARIFA/AILYN Voice ID: [id number] Report ID: [id number] CARMINA
[2022-06-05] MEDS ORDERED: CEFTRIAXONE 1000 MG/VIAL ONE (20:10)
[2022-06-05] MEDS ORDERED: NA CHLORIDE 0.9% 50 ML ONE (20:18)
[2022-06-05] MEDS: LACTOBACILLUS/ACIDOPHILUS TAB PO SCH (21:00)
[2022-06-05] MEDS: CEFTRIAXONE 1,000 MG in NA CHLORIDE 0.9% 50 ML IVPB SCH (21:00)
[2022-06-06] MEDS: Ringers Lactate 1,000 ML IV SCH ×2 (03:57→09:27)
[2022-06-06] MEDS: HYDROCODONE/APAP 7.5/325 MG TAB PO PRN ×3 (06:34→20:48)
[2022-06-06 07:35] LABS: Potassium 4.3 mmol/L (3.5-5.1)
[2022-06-06] MEDS: NICOTINE 7 MG/PAT TD SCH (09:00)
[2022-06-06] MEDS: ENOXAPARIN 40 MG/0.4 ML SQ SCH (09:17)
[2022-06-06] MEDS: LACTOBACILLUS/ACIDOPHILUS TAB PO SCH ×2 (09:18→20:25)
[2022-06-06 09:33] LABS: Specific Gravity 1.006 (1.005-1.030); Urine Bilirubin NEGATIVE (Negative); Urine Blood Negative (Negative); Urine Clarity Clear (Clear); Urine Color Colorless (Yellow); Urine Glucose NEGATIVE (Negative); Urine Mucus Slight /HPF (None Seen); Urine Protein NEGATIVE (Negative); Urine RBC <5 /HPF (None Seen); Urine Urobilinogen Normal (Normal); Urine pH 7.5 (5.0-7.0)
--- NOTE | 2022-06-06 14:46 | PN ---
Subjective: The patient is lying in bed. No new acute event. Chart reviewed. She is feeling much better today. No nausea, vomiting. Objective: Vital Signs: Stable. Lungs: Clear to auscultation. Heart: S1, S2. Regular. Abdomen: Soft, nontender. Bowel sounds present. Laboratory Data: Blood cultures E coli. Labs reviewed. Assessment And Plan: Bacteremia secondary to Escherichia coli urinary tract infection, improving. C ontinue antibiotic. Repeat blood cultures are pending. We will recommend to continue the patient on Cipro 14 days and probiotic to go home with. We will follow the patient as needed. Monitor for sig ns of infection. NF/MODL Voice ID: [id number] Report ID: [id number]
--- NOTE | 2022-06-06 17:46 | P.PN ---
Subjective Date of Service: 06/06/22 Chief Complaint: Sepsis, pyelonephritis Subjective: No new changes, Improving Physical Examination - Vital Signs Temperature: 97.2 F Blood Pressure: 169/84 Pulse: 88 Respirations: 16 Pulse Ox (%): 100 - Physical Exam General: Alert, Oriented x3 HEENT: Atraumatic, Normocephalic Neck: Supple Respiratory: Normal air movement Cardiovascular: Regular rate/rhythm, Normal S1 S2 Gastrointestinal: Soft and benign Musculoskeletal: No swelling Neurological: Normal speech, Normal strength at 5/5 x4 extr Assessment And Plan - Plan # Severe Sepsis likely secondary to Right-Sided Pyelonephritis and Multi-Drug Resistant Escherechia Coli Bacteremia with question of Early Renal Abscess Significant improvement in symptomatology and neutrophil differential. E. coli bacteremia noted and antibiogram noted. To complete 14 day course of oral antibiotics of ciprofloxacin for E coli pyelonephritis/bacteremia. for possible dc in am. Physician Review: Patient Assessed, Agree with Above Assessment and Plan
[2022-06-06] MEDS: CIPROFLOXACIN HCL 500 MG TAB PO SCH (20:26)
[2022-06-06] MEDS: ZOLPIDEM TARTRATE 5 MG TABLET PO PRN (20:48)
[2022-06-07 08:39] VITALS: BP 130/79; TEMP 97
[2022-06-07] MEDS: ENOXAPARIN 40 MG/0.4 ML SQ SCH (09:00)
[2022-06-07] MEDS: NICOTINE 7 MG/PAT TD SCH (09:00)
[2022-06-07] MEDS: HYDROCODONE/APAP 7.5/325 MG TAB PO PRN (10:07)
[2022-06-07] MEDS: LACTOBACILLUS/ACIDOPHILUS TAB PO SCH (10:08)
[2022-06-07] MEDS: CIPROFLOXACIN HCL 500 MG TAB PO SCH (10:08)
== END 2022-06-07 12:49 | disposition home or self-care (01) | DRG 872 ==
LOC: ER 20:27 → ERHOLD 06-02 02:09 → 3RD-ICU 06-02 14:08 → 4TH 06-04 09:00
PROVIDERS: ADMIT Internal Medicine; ATTEND Hospitalist
DX: A41.51 Sepsis due to Escherichia coli [E. coli] (principal); N10 Acute pyelonephritis; E87.2 Acidosis; Z16.24 Resistance to multiple antibiotics; E87.6 Hypokalemia; F17.200 Nicotine dependence, unspecified, uncomplicated; R65.20 Severe sepsis without septic shock; R73.9 Hyperglycemia, unspecified; Z90.49 Acquired absence of other specified parts of digestive tract; Z20.822 Contact with and (suspected) exposure to COVID-19
CPT/HCPCS: 36415; 71045; 74177; 76770; 80048; 80053; 81001; 81003; 81015; 81025; 82947; 83036; 83605; 83735; 84132; 84145; 85025; 85610; 87040; 87070; 87077; 87081; 87086; 87088; 87186; 87205; 87804; 93005; 96361; 96365; 96366; 96368; 96375; 99285; J1650; J2270; J2405; J3475; J3480; J7030; J7040; J7120; Q9967; U0003

== ENCOUNTER → 2023-11-12 | Emergency (ER) | payer OTHER, SELFPAY ==
[2012-06-11 08:37] VITALS: BP 139/59
[~2023-11-12] MED LIST: Calcium Chloride 10% INJ SYR IV ONE; D50W 25 GM/50 ML SYRINGE IV ONE; EPINEPHrine 1 MG/10 ML SYR IV ONE; NA CHLORIDE 0.9% 1,000 ML IV ONE; NALOXONE HCL 2 MG/2 ML VIAL IV ONE
--- NOTE | 2023-11-12 21:11 | ER ---
Nurse's Notes [facility] Name: Christine Casey Age: 33 yrs Sex: Female : 1990 Arrival Date: 11/12/2023 Time: 20:35 Bed [id number] Private MD: Diagnosis: Cardiac arrest, cause unspecified;Respiratory failure, anoxic brain injury Presentation: 11/12 20:31 Chief complaint: EMS states: toned out by PT spouse for abdominal cramps and syncopal lg3 episode. On EMS arrival spouse performing CPR. At this time, PT unresponsive, no pulse, pupils fixed and dilated. stated downtime 1935. on arrival, ananth and hemant tube in place. 21:48 Care prior to arrival: Oral airway placed, CPR via thumper Placed on backboard. Glucose lg3 check: 102. Compressions began at 19:35. 21:48 Method Of Arrival: EMS: [facility] lg3 21:48 Acuity: MICHELLE 1 lg3 Historical: - Allergies: 23:04 Unable to obtain; lg3 - Home Meds: 23:04 Unable to obtain [Active]; lg3 - PMHx: 23:04 Unable to Obtain; lg3 - PSHx: 23:04 Unable to Obtain; lg3 - Family history:: not pertinent. Screenin:04 Nutritional screening: No deficits noted. Tuberculosis screening: No symptoms or risk lg3 factors identified. Assessment: 20:31 CPR assessment: unresponsive, pupils fixed \T\ dilated, no respiratory effort, mechanical lg3 ventilation. Cardiac rhythm is asystole. General: Behavior is unresponsive. Neuro: Lopez Agitation-Sedation Scale (RASS): -5 Unarousable Level of Consciousness is unresponsive, Pupils are fixed, dilated. Cardiovascular: Heart tones absent Pulses absent. Respiratory: Airway via oral airway. GI: Abdomen is round non-distended, obese. : No deficits noted. Derm: Skin is intact, Skin is dusky, Skin temperature is cool. 20:36 Cardiovascular: Rhythm is asystole. lg3 20:40 Cardiac rhythm is asystole. lg3 20:41 Cardiac rhythm is asystole. lg3 20:45 Cardiac rhythm is asystole. lg3 20:49 Cardiac rhythm is asystole. lg3 Vital Signs: 11/13 05:16 Weight 81.65 kg; Height 5 ft. 5 in. ; [facility] 05:16 Body Mass Index 29.95 (81.65 kg, 165.1 cm) [facility] ED Course: 11/12 20:33 Intubation: 7.5 Fr. ETT placed orally. Performed by Dash Motley MD Successful on lg3 first attempt. Placement verified by CO2 detector w/ + color change, auscultating bilateral breath sounds, Ventilated with Ambu bag. 20:33 Inserted saline lock: 22 gauge in right ,using aseptic technique. foot. lg3 20:35 Patient has correct armband on for positive identification. lg3 20:42 Assisted provider with central line placement. Set up central line tray. Triple lumen lg3 line placed in left femoral. Line placed by Dash Motley MD Placement verified by blood return. 20:51 Patient arrived in ED. sb4 20:51 Dash Motley MD is Attending Physician. sp4 21:10 Dash Motley MD is Pronouncing Provider. sp4 23:01 Triage completed. lg3 Administered Medications: 20:34 Drug: EPINEPHrine 0.1mg/mL 1:10,000 1 mg IVP once Route: IVP; Site: Other; lg3 20:35 Drug: Sodium Bicarbonate 1 amp IVP once; (50 mL); equals 50 mEq Route: IVP; Site: Other;lg3 20:35 Drug: NARcan (naloxone) 2 mg IVP once Route: IVP; Site: Other; lg3 20:35 Drug: Flumazenil 0.2 mg IVP once; Over 15 seconds Route: IVP; Site: Other; lg3 20:37 Drug: Calcium Chloride 1 grams IVP once Route: IVP; Site: Other; lg3 20:38 Drug: EPINEPHrine 0.1mg/mL 1:10,000 1 mg IVP once Route: IVP; Site: Other; lg3 20:39 Drug: NS 0.9% 1000 ml IV at 1 bolus Per protocol; 1000 mL bolus Route: IV; Rate: 1 lg3 bolus; Site: Other; 20:40 Drug: Sodium Bicarbonate 1 amp IVP once; (50 mL); equals 50 mEq Route: IVP; Site: Other;lg3 20:40 Drug: EPINEPHrine 0.1mg/mL 1:10,000 1 mg IVP once Route: IVP; Site: Other; lg3 20:42 Drug: Sodium Bicarbonate 1 amp IVP once; (50 mL); equals 50 mEq Route: IVP; Site: Other;lg3 20:43 Drug: EPINEPHrine 0.1mg/mL 1:10,000 1 mg IVP once Route: IVP; Site: Other; lg3 20:44 Drug: D50W 50 ml IVP once; (1 amp) Route: IVP; Site: Other; lg3 20:45 Drug: EPINEPHrine 0.1mg/mL 1:10,000 1 mg IVP once Route: IVP; Site: Other; lg3 20:47 Drug: Sodium Bicarbonate 1 amp IVP once; (50 mL); equals 50 mEq Route: IVP; Site: Other;lg3 20:48 Drug: EPINEPHrine 0.1mg/mL 1:10,000 1 mg IVP once Route: IVP; Site: Other; lg3 Outcome: 20:49 Outcome Patient lg3 20:49 Patient : Time of 20:49 Pronounced by Dash Motley MD Body released lg3 to VT 20:49 Condition: 11/13 03:59 Patient left the ED. lg3 Signatures: Jossy Jacques RN RN lg3 Indu Walton, Dash Pichardo PA-C, MD MD sp4 Kerrie Rubalcava [facility] Corrections: (The following items were deleted from the chart) 11/12 23:01 20:31 Chief complaint: EMS states: toned out by PT spouse for abdominal cramps and lg3 syncopal episode. On EMS arrival spouse performing CPR. At this time, PT unresponsive, no pulse, pupils fixed and dilated. lg3 11/13 03:50 02 21:48 CPR assessment: unresponsive, pupils fixed \T\ dilated, no respiratory lg3 effort, mechanical ventilation, lg3 11/13 03:50 02 21:48 Cardiac rhythm is asystole lg3 lg3 11/13 03:50 02 21:48 General: Behavior is unresponsive. lg3 lg3 11/13 03:50 02 21:48 Neuro: Lopez Agitation-Sedation Scale (RASS): -5 Unarousable Level of lg3 Consciousness is unresponsive, Pupils are fixed, dilated, lg3 11/13 03:50 02 21:48 Cardiovascular: Rhythm is asystole lg3 lg3 11/13 03:50 11/12 21:48 Respiratory: Airway via oral airway lg3 lg3 11/13 03:50 02 21:48 GI: Abdomen is round non-distended, obese, lg3 lg3 11/13 03:50 02 21:48 : No deficits noted. lg3 lg3 11/13 03:50 02 21:48 Derm: Skin is intact, Skin is dusky, Skin temperature is cool lg3 lg3
--- NOTE | 2023-11-12 21:11 | EDPHYS ---
Physician Documentation [facility] Name: Christine Casey Age: 33 yrs Sex: Female : 1990 Arrival Date: 11/12/2023 Time: 20:35 Bed IW10 Private MD: ED Physician Dash Motley HPI: 11/12 20:56 This 33 yrs old Female presents to ER via Unassigned with complaints of sp4 cardiac arrest. . 20:56 33-year-old female arrived in cardiac arrest. . sp4 20:57 Patient last known well was reported at 7:20 PM EMS received call and arrived at the [facility] place of residence at 19:55. EMS determined patient was pulseless without spontaneous respirations and initiated CPR on arrival. EMS reported they are on [employer] truck. EMS placed a Nbaeel LT airway and initiated high-quality CPR with Monico device. IV was not established prior to arrival secondary to BLS nature of the truck. Patient arrived with Nabeel LT device and Monico device with CPR in progress. EMS reports CPR was initiated around 20 00. Patient arrived at 2040 after 31 minutes of CPR in the field. EMS reported asystole throughout no return of spontaneous circulation's on pulse checks. EMS reported dilated and fixed pupils no gag reflex, no spontaneous respirations. Patient has reported to the EMS that patient has history of drug use and has used methamphetamine today. . On arrival CPR continued and patient was immediately intubated on arrival with ET tube. . Historical: - Allergies: 23:04 Unable to obtain; lg3 - Home Meds: 23:04 Unable to obtain [Active]; lg3 - PMHx: 23:04 Unable to Obtain; lg3 - PSHx: 23:04 Unable to Obtain; lg3 - Family history:: not pertinent. ROS: 20:57 Constitutional: ROS not available secondary to unresponsive condition sp4 20:57 All other systems are negative, 20:57 Unable to obtain ROS due to patient is on ventilator, Exam: 20:57 Constitutional: Pale appearing perioral cyanosis, CPR in progress, unresponsive to any sp4 stimuli, dilated and fixed pupils on arrival, no spontaneous circulations, no pulses on arrival. Head/Face: Normocephalic, atraumatic. Eyes: Pupils are dilated and fixed, negative corneal reflex, negative oculocephalic reflex. ENT: Nares patent. No nasal discharge, no septal abnormalities noted. Nabeel LT removed on arrival and patient intubated with size 7.5 ET tube. Negative gag reflex Neck: Trachea midline, no thyromegaly or masses palpated, and no cervical lymphadenopathy. Negative pulses and carotid area Chest/axilla: Normal chest wall appearance Cardiovascular: Negative pulses, negative femoral pulses, no carotid pulses Respiratory: After intubation lung sounds are equal bilaterally. Abdomen/GI: Soft, nondistended abdomen Back: No signs of spinal deformity Pelvic Exam: Normal external genitalia. , Female [employer] present, Skin: Warm, dry, perioral cyanosis generalized pallor MS/ Extremity: Negative deformities Neuro: Unresponsive patient no response to painful noxious stimuli, negative gag reflex, dilated and fixed pupils, negative oculocephalic reflex, negative brainstem reflexes, signs of prolonged hypoxia Vital Signs: 11/13 05:16 Weight 81.65 kg; Height 5 ft. 5 in. ; [facility] 05:16 Body Mass Index 29.95 (81.65 kg, 165.1 cm) [facility] Procedures: 11/12 20:57 Intubation: Intubated Heaters scope assisted intubation, Nabeel LT was removed patient sp4 intubated with 7.5 ET tube via glide scope using S 3 GlideScope blade with 7.5 mm ETT. was successful on first attempt. Ventilated with Ambu bag. Tube secured with ETT heredia at center of mouth measured 25 cm at lip. Placement verified by CO2 detector with (+) color change, auscultating bilateral breath sounds, Patient tolerated CPR restarted after intubation. Central Line: the site was prepped with in sterile fashion, Chlorhexidine prep, a triple lumen catheter was inserted, in the left femoral vein, in 2 attempts. placement was verified, by blood return, the site was dressed with 4X4s, Tegaderm, using sterile technique, the patient tolerated the procedure, Remains pulseless, Successful emergent left femoral central line placed, triple-lumen line 20 cm long. MDM: 20:52 Patient medically screened. sp4 20:57 Data reviewed: vital signs, nurses notes, EMS record. ED course: Resuscitation sp4 continued in the emergency room patient was given IV epinephrine after IV was started and the right foot. After that emergent left femoral central line was placed. Patient arrived after 31 minutes of CPR in the field without ROSC. Patient was given IV bicarbonate x 3, several doses of epinephrine, 4 mg IV Narcan, 1 mg IV Romazicon, IV D50, IV calcium, bolus IV fluid 1 L, after several rounds of CPR patient remains without pulses and without spontaneous respirations. At 2048 ultrasound was done and cardiac ultrasound revealed no sign of cardiac contractility. Patient pronounced at 20:49 on 11/12/2023. Patient underwent total of 49 minutes of CPR in the field and in the emergency room without return of spontaneous circulation. . Administered Medications: 20:34 Drug: EPINEPHrine 0.1mg/mL 1:10,000 1 mg IVP once Route: IVP; Site: Other; lg3 20:35 Drug: Sodium Bicarbonate 1 amp IVP once; (50 mL); equals 50 mEq Route: IVP; Site: Other;lg3 20:35 Drug: NARcan (naloxone) 2 mg IVP once Route: IVP; Site: Other; lg3 20:35 Drug: Flumazenil 0.2 mg IVP once; Over 15 seconds Route: IVP; Site: Other; lg3 20:37 Drug: Calcium Chloride 1 grams IVP once Route: IVP; Site: Other; lg3 20:38 Drug: EPINEPHrine 0.1mg/mL 1:10,000 1 mg IVP once Route: IVP; Site: Other; lg3 20:39 Drug: NS 0.9% 1000 ml IV at 1 bolus Per protocol; 1000 mL bolus Route: IV; Rate: 1 lg3 bolus; Site: Other; 20:40 Drug: Sodium Bicarbonate 1 amp IVP once; (50 mL); equals 50 mEq Route: IVP; Site: Other;lg3 20:40 Drug: EPINEPHrine 0.1mg/mL 1:10,000 1 mg IVP once Route: IVP; Site: Other; lg3 20:42 Drug: Sodium Bicarbonate 1 amp IVP once; (50 mL); equals 50 mEq Route: IVP; Site: Other;lg3 20:43 Drug: EPINEPHrine 0.1mg/mL 1:10,000 1 mg IVP once Route: IVP; Site: Other; lg3 20:44 Drug: D50W 50 ml IVP once; (1 amp) Route: IVP; Site: Other; lg3 20:45 Drug: EPINEPHrine 0.1mg/mL 1:10,000 1 mg IVP once Route: IVP; Site: Other; lg3 20:47 Drug: Sodium Bicarbonate 1 amp IVP once; (50 mL); equals 50 mEq Route: IVP; Site: Other;lg3 20:48 Drug: EPINEPHrine 0.1mg/mL 1:10,000 1 mg IVP once Route: IVP; Site: Other; lg3 Disposition: 20:57 . sp4 Disposition Summary: 11/12/23 21:11 Patient Notes: Location: [employer] sp4 Pronouncing Physician: Dash Motley sp4 Time of : 20:49 11/12/2023 sp4 Diagnosis - Cardiac arrest, cause unspecified sp4 - Respiratory failure, anoxic brain injury sp4 Signatures: Jossy Jacques RN RN lg3 Dash Motley MD MD sp4
== END ==
LOC: ER 20:35
PROC: 06HN33Z Insertion of Infusion Device into Left Femoral Vein, Percutaneous Approach (ICD-10-PCS; principal; 2023-11-12)
DX: I46.9 Cardiac arrest, cause unspecified (principal); J96.90 Respiratory failure, unspecified, unspecified whether with hypoxia or hypercapnia; G93.1 Anoxic brain damage, not elsewhere classified
CPT/HCPCS: J0171; J2310; J7030